=== PATIENT | female | born 1990 | race Caucasian/White ===

== ENCOUNTER 2017-02-27 11:38 | Outpatient (CLI) | payer OTHER ==
[~2017-02-27] VITALS: Ht 165.1 cm; Wt 68.5 kg
[~2017-02-27 11:38] MED LIST: MAXALT MLT10 MG PO; SPRINTEC1 EACH PO
[2017-02-27 11:54] VITALS: BP 130/75
[2017-02-27] MEDS ORDERED: ASPIR 8181 M1 PO (12:10)
[2017-02-27 12:47] LABS: EOSINOPHIL (%) 0.5 % (0-5); EOSINOPHIL COUNT 0.1 K/uL (0-0.3); HEMATOCRIT 31.5 % (36.0-46.0); IMMATURE GRANULOCYTE (%) 0.6 % (0.0-0.7); IMMATURE GRANULOCYTE COUNT 0.1 K/uL; INSTRUMENT ABS NEUTROPHIL CT 8.5 K/uL; LYMPHOCYTE COUNT 1.1 K/uL (1.0-2.8); MCH 32.7 PG (29.0-34.0); MCHC 34.3 G/DL (30.0-36.0); MCV 95.5 FL (83-99); MEAN PLAT.VOLUME 11.4 uM^3 (9.5-12.4); MONOCYTE (%) 7.2 % (3-12); MONOCYTE COUNT 0.8 K/uL (0-0.8); NEUTROPHIL (%) 80.8 % (45-76); NEUTROPHIL COUNT 8.5 K/uL (1.8-6.4); PLATELET COUNT 182 K/uL (156-360); RBC DIS.WIDTH-CV 13.2 % (11.8-14.6); RBC DIS.WIDTH-SD 45.6 % (39-53); WHITE BLOOD COUNT 10.5 K/uL (4.1-10.2)
[2017-02-27 13:25] LABS: ADD MIUA? YES; BILIRUBIN NEGATIVE; BLOOD NEGATIVE; COLOR YELLOW ((YELLOW)); GLUCOSE (STRIP) NEGATIVE; KETONES 5; LEUKOCYTES TRACE; NITRITE NEGATIVE; PROTEIN (STRIP) NEGATIVE; SPECIFIC GRAVITY 1.008 (1.000-1.030); UROBILINOGEN 0.2 MG/DL (0.2-1.0)
[2017-02-27 13:39] LABS: BACTERIA 3+ /HPF; EPITHELIAL CELLS RARE /HPF; MUCUS NONE SEEN /LPF; RED BLOOD CELLS 0-5 /HPF (0-5); UCUL ADDED? YES; WHITE BLOOD CELLS 0-5 /HPF (0-5)
[2017-02-27 15:47] VITALS: BP 115/61
[2017-02-27 18:05] VITALS: BP 115/64
[2017-02-27 18:43] LABS: CANDIDA DNA PROBE NEGATIVE; GARDNERELLA DNA PROBE NEGATIVE; INTERNAL CONTROL VALID? YES
== END 2017-02-27 19:45 | disposition home or self-care (01) ==
LOC: LDRP-OP 11:38 → 2WEST 11:41 → LDRP-OP 07-21 13:57
PROVIDERS: Obstetrics & Gynecology
DX: O47.03 False labor before 37 completed weeks of gestation, third trimester (principal); D72.829 Elevated white blood cell count, unspecified; O30.003 Twin pregnancy, unspecified number of placenta and unspecified number of amniotic sacs, third trimester; Z3A.28 28 weeks gestation of pregnancy
CPT/HCPCS: 59025; 76818; 81003; 82731; 85025; 87081; 87086; 87480; 87510; 87660; G0378; J7120

== ENCOUNTER 2017-03-26 08:09 | Outpatient (CLI) | payer OTHER ==
[~2017-03-26] VITALS: Ht 165.1 cm; Wt 71.8 kg
[~2017-03-26 08:09] MED LIST changes: +ASPIR 8181 M1 PO
[2017-03-26 08:34] VITALS: BP 124/72
[2017-03-26 17:14] LABS: CANDIDA DNA PROBE NEGATIVE; GARDNERELLA DNA PROBE POSITIVE; TRICHOMONAS DNA PROBE NEGATIVE
== END 2017-03-26 13:20 | disposition home or self-care (01) ==
LOC: LDRP-OP 08:09 → 2WEST 08:10 → LDRP-OP 06-21 20:39
PROVIDERS: Obstetrics & Gynecology Gynecology
DX: O47.03 False labor before 37 completed weeks of gestation, third trimester (principal); O98.813 Other maternal infectious and parasitic diseases complicating pregnancy, third trimester; O30.003 Twin pregnancy, unspecified number of placenta and unspecified number of amniotic sacs, third trimester; Z3A.32 32 weeks gestation of pregnancy
CPT/HCPCS: 59025; 76818; 82731; 87480; 87510; 87660; G0378

== ENCOUNTER 2017-03-31 08:20 | Outpatient (CLI) | payer OTHER ==
[~2017-03-31] VITALS: Ht 165.1 cm; Wt 79.5 kg
[2017-03-31] VITALS (21 sets, daily range): BP systolic 113–161; BP diastolic 69–93
[2017-03-31] MEDS ORDERED: FLAGYL500 MG PO (08:46)
[2017-03-31] MEDS ORDERED: MEBOLIC TABLET1 EACH PO (08:47)
[2017-03-31 09:47] LABS: BASOPHIL (%) 0.2 % (0-1); EOSINOPHIL (%) 0.1 % (0-5); HEMATOCRIT 29.4 % (36.0-46.0); HEMOGLOBIN 9.8 G/DL (11.9-15.5); IMMATURE GRANULOCYTE (%) 2.7 % (0.0-0.7); LYMPHOCYTE (%) 6.3 % (15-42); LYMPHOCYTE COUNT 0.9 K/uL (1.0-2.8); MCH 31.1 PG (29.0-34.0); MCHC 33.3 G/DL (30.0-36.0); MCV 93.3 FL (83-99); MONOCYTE (%) 9.4 % (3-12); MONOCYTE COUNT 1.3 K/uL (0-0.8); NEUTROPHIL (%) 81.3 % (45-76); NEUTROPHIL COUNT 11.3 K/uL (1.8-6.4); NRBC (%) 0.9 /100 WBC (0-0); PLATELET COUNT 181 K/uL (156-360); RBC DIS.WIDTH-CV 12.4 % (11.8-14.6); RBC DIS.WIDTH-SD 42.4 % (39-53); RED BLOOD COUNT 3.15 M/uL (3.80-5.20); WHITE BLOOD COUNT 13.9 K/uL (4.1-10.2)
[2017-03-31 09:56] LABS: ALBUMIN 2.9 g/dL (3.2-4.8)
[2017-03-31 09:57] LABS: CHLORIDE 113 mEq/L (99-109); POTASSIUM 3.8 mEq/L (3.7-5.4); SODIUM 141 mEq/L (136-147)
[2017-03-31 09:59] LABS: GLUCOSE 89 mg/dL (70-99); TOTAL PROTEIN 5.1 g/dL (6.4-8.3)
[2017-03-31 10:01] LABS: TOTAL BILIRUBIN 0.2 mg/dL (0.0-1.0)
[2017-03-31 10:02] LABS: ALKALINE PHOSPHATASE 163 IU/L (3-129)
[2017-03-31 10:03] LABS: CREATININE 0.8 mg/dL (0.6-1.3); GFR ESTIMATE (CALCULATED) > 59 mL/min/
[2017-03-31 10:04] LABS: AST (GOT) 39 IU/L (2-34); UREA NITROGEN (BUN) 18 mg/dL (9-23)
[2017-03-31 10:05] LABS: ALT (GPT) 26 IU/L (3-49)
[2017-03-31 10:50] LABS: UR CREATININE CONCENTRATION 85.1 MG/DL
[2017-04-01 04:04] VITALS: BP 149/87
[2017-04-01 05:37] VITALS: BP 145/92
[2017-04-01 06:52] LABS: BASOPHIL (%) 0.5 % (0-1); BASOPHIL COUNT 0.1 K/uL (0-0.1); EOSINOPHIL COUNT 0.1 K/uL (0-0.3); HEMATOCRIT 30.1 % (36.0-46.0); HEMOGLOBIN 9.9 G/DL (11.9-15.5); IMMATURE GRANULOCYTE (%) 4.4 % (0.0-0.7); LYMPHOCYTE (%) 9.9 % (15-42); MCH 31.2 PG (29.0-34.0); MCHC 32.9 G/DL (30.0-36.0); MONOCYTE (%) 8.9 % (3-12); MONOCYTE COUNT 0.9 K/uL (0-0.8); NEUTROPHIL (%) 75.3 % (45-76); NEUTROPHIL COUNT 7.4 K/uL (1.8-6.4); NRBC (%) 1.1 /100 WBC (0-0); PLATELET COUNT 173 K/uL (156-360); RBC DIS.WIDTH-CV 12.4 % (11.8-14.6); RBC DIS.WIDTH-SD 42.9 % (39-53); RED BLOOD COUNT 3.17 M/uL (3.80-5.20); WHITE BLOOD COUNT 9.9 K/uL (4.1-10.2)
[2017-04-01 07:17] LABS: ALBUMIN 2.7 G/DL (3.2-4.8); ALKALINE PHOSPHATASE 144 IU/L (3-129); ALT (GPT) 26 IU/L (3-49); AST (GOT) 36 IU/L (2-34); CHLORIDE 106 MEQ/L (99-109); CREATININE 0.7 MG/DL (0.6-1.3); GFR ESTIMATE (CALCULATED) > 59 mL/min/; GLUCOSE 75 mg/dL (70-99); POTASSIUM 4.4 MEQ/L (3.7-5.4); SODIUM 138 MEQ/L (136-147); TOTAL BILIRUBIN 0.3 MG/DL (0.0-1.0); UREA NITROGEN (BUN) 14 mg/dL (9-23)
[2017-04-01 07:44] VITALS: BP 141/90
== END 2017-04-01 09:32 | disposition home or self-care (01) ==
LOC: LDRP-OP 08:20 → 2WEST 08:21 → LDRP-OP 06-21 13:27
PROVIDERS: Advanced Practice Midwife; Obstetrics & Gynecology
DX: O14.93 Unspecified pre-eclampsia, third trimester (principal); O30.033 Twin pregnancy, monochorionic/diamniotic, third trimester; Z3A.32 32 weeks gestation of pregnancy
CPT/HCPCS: 59025; 80053; 82570; 84156; 85025; 87081; G0378

== ENCOUNTER 2017-04-10 18:23 | Outpatient (CLI) | payer OTHER ==
[2017-04-10] VITALS (7 sets, daily range): BP systolic 112–126; BP diastolic 67–75
[~2017-04-10 18:23] MED LIST changes: +FLAGYL500 MG PO; +MEBOLIC TABLET1 EACH PO
[2017-04-10 19:25] LABS: APPEARANCE SL.HAZY ((CLEAR)); BILIRUBIN NEGATIVE; BLOOD NEGATIVE; COLOR YELLOW ((YELLOW)); GLUCOSE (STRIP) NEGATIVE; KETONES NEGATIVE; LEUKOCYTES NEGATIVE; NITRITE NEGATIVE; PROTEIN (STRIP) 100; SPECIFIC GRAVITY 1.016 (1.000-1.030); UROBILINOGEN 0.2 MG/DL (0.2-1.0)
[2017-04-10 19:31] LABS: BACTERIA 2+ /HPF; EPITHELIAL CELLS RARE /HPF; MUCUS TRACE /LPF; RED BLOOD CELLS 0-5 /HPF (0-5); UCUL ADDED? YES; WHITE BLOOD CELLS 0-5 /HPF (0-5)
[2017-04-10 19:36] LABS: BASOPHIL (%) 0.2 % (0-1); EOSINOPHIL (%) 1.1 % (0-5); EOSINOPHIL COUNT 0.1 K/uL (0-0.3); HEMATOCRIT 32.6 % (36.0-46.0); HEMOGLOBIN 10.8 G/DL (11.9-15.5); IMMATURE GRANULOCYTE (%) 0.6 % (0.0-0.7); LYMPHOCYTE (%) 13.3 % (15-42); LYMPHOCYTE COUNT 1.1 K/uL (1.0-2.8); MCH 30.3 PG (29.0-34.0); MCHC 33.1 G/DL (30.0-36.0); MCV 91.6 FL (83-99); MONOCYTE (%) 8.8 % (3-12); MONOCYTE COUNT 0.7 K/uL (0-0.8); NEUTROPHIL COUNT 6.3 K/uL (1.8-6.4); PLATELET COUNT 180 K/uL (156-360); RBC DIS.WIDTH-CV 12.6 % (11.8-14.6); RBC DIS.WIDTH-SD 41.9 % (39-53); RED BLOOD COUNT 3.56 M/uL (3.80-5.20); WHITE BLOOD COUNT 8.3 K/uL (4.1-10.2)
[2017-04-10 19:48] LABS: ALBUMIN 2.7 G/DL (3.2-4.8); CHLORIDE 105 MEQ/L (99-109); POTASSIUM 4.1 MEQ/L (3.7-5.4); SODIUM 135 MEQ/L (136-147); TOTAL BILIRUBIN 0.2 MG/DL (0.0-1.0)
[2017-04-10 19:54] LABS: ALKALINE PHOSPHATASE 161 IU/L (3-129); ALT (GPT) 20 IU/L (3-49); AST (GOT) 20 IU/L (2-34); CREATININE 0.6 MG/DL (0.6-1.3); GFR ESTIMATE (CALCULATED) > 59 mL/min/; GLUCOSE 86 mg/dL (70-99); TOTAL PROTEIN 5.4 G/DL (6.4-8.3); UREA NITROGEN (BUN) 12 mg/dL (9-23); URIC ACID 6.4 mg/dL (3.1-9.2)
== END 2017-04-10 20:20 | disposition home or self-care (01) ==
LOC: LDRP-OP 18:23 → 2WEST 18:24 → LDRP-OP 06-21 09:38
PROVIDERS: Advanced Practice Midwife
DX: O14.93 Unspecified pre-eclampsia, third trimester (principal); Z3A.34 34 weeks gestation of pregnancy; O30.033 Twin pregnancy, monochorionic/diamniotic, third trimester
CPT/HCPCS: 59025; 80053; 81003; 84550; 85025; 87086; G0378

== ENCOUNTER 2017-04-15 16:21 | Outpatient (CLI) | payer OTHER ==
[2017-04-15] VITALS (11 sets, daily range): BP systolic 109–153; BP diastolic 68–94
[2017-04-15 17:23] LABS: BASOPHIL (%) 0.3 % (0-1); EOSINOPHIL (%) 0.7 % (0-5); EOSINOPHIL COUNT 0.1 K/uL (0-0.3); HEMATOCRIT 31.6 % (36.0-46.0); HEMOGLOBIN 10.5 G/DL (11.9-15.5); IMMATURE GRANULOCYTE (%) 0.4 % (0.0-0.7); LYMPHOCYTE (%) 15.4 % (15-42); LYMPHOCYTE COUNT 1.1 K/uL (1.0-2.8); MCH 30.6 PG (29.0-34.0); MCHC 33.2 G/DL (30.0-36.0); MCV 92.1 FL (83-99); MONOCYTE COUNT 0.5 K/uL (0-0.8); NEUTROPHIL (%) 76.2 % (45-76); NEUTROPHIL COUNT 5.6 K/uL (1.8-6.4); PLATELET COUNT 184 K/uL (156-360); RBC DIS.WIDTH-CV 12.7 % (11.8-14.6); RBC DIS.WIDTH-SD 41.6 % (39-53); RED BLOOD COUNT 3.43 M/uL (3.80-5.20); WHITE BLOOD COUNT 7.3 K/uL (4.1-10.2)
[2017-04-15 17:33] LABS: UR CREATININE CONCENTRATION 23.3 MG/DL
[2017-04-15 17:39] LABS: ALBUMIN 2.7 G/DL (3.2-4.8); ALKALINE PHOSPHATASE 177 IU/L (3-129); ALT (GPT) 11 IU/L (3-49); AST (GOT) 15 IU/L (2-34); CHLORIDE 110 MEQ/L (99-109); CREATININE 0.8 MG/DL (0.6-1.3); GFR ESTIMATE (CALCULATED) > 59 mL/min/; GLUCOSE 85 mg/dL (70-99); POTASSIUM 4.1 MEQ/L (3.7-5.4); SODIUM 137 MEQ/L (136-147); TOTAL PROTEIN 5.3 G/DL (6.4-8.3); UREA NITROGEN (BUN) 12 mg/dL (9-23)
[2017-04-15 17:40] LABS: TOTAL BILIRUBIN 0.3 MG/DL (0.0-1.0)
[2017-04-16 00:04] VITALS: BP 118/60
[2017-04-16 05:23] VITALS: BP 120/76
[2017-04-16 06:39] LABS: BASOPHIL (%) 0.7 % (0-1); EOSINOPHIL (%) 1.6 % (0-5); EOSINOPHIL COUNT 0.1 K/uL (0-0.3); HEMATOCRIT 30.8 % (36.0-46.0); HEMOGLOBIN 9.9 G/DL (11.9-15.5); IMMATURE GRANULOCYTE (%) 0.9 % (0.0-0.7); LYMPHOCYTE (%) 20.6 % (15-42); LYMPHOCYTE COUNT 1.2 K/uL (1.0-2.8); MCH 30.7 PG (29.0-34.0); MCHC 32.1 G/DL (30.0-36.0); MCV 95.7 FL (83-99); MONOCYTE (%) 7.6 % (3-12); MONOCYTE COUNT 0.4 K/uL (0-0.8); NEUTROPHIL (%) 68.6 % (45-76); PLATELET COUNT 156 K/uL (156-360); RBC DIS.WIDTH-SD 44.4 % (39-53); RED BLOOD COUNT 3.22 M/uL (3.80-5.20); WHITE BLOOD COUNT 5.8 K/uL (4.1-10.2)
[2017-04-16 06:58] VITALS: BP 135/87
[2017-04-16 07:13] LABS: ALBUMIN 2.4 G/DL (3.2-4.8); ALKALINE PHOSPHATASE 170 IU/L (3-129); ALT (GPT) 11 IU/L (3-49); AST (GOT) 15 IU/L (2-34); CHLORIDE 111 MEQ/L (99-109); CREATININE 0.7 MG/DL (0.6-1.3); GFR ESTIMATE (CALCULATED) > 59 mL/min/; GLUCOSE 68 mg/dL (70-99); POTASSIUM 4.2 MEQ/L (3.7-5.4); SODIUM 140 MEQ/L (136-147); TOTAL BILIRUBIN 0.3 MG/DL (0.0-1.0); TOTAL PROTEIN 4.6 G/DL (6.4-8.3); UREA NITROGEN (BUN) 11 mg/dL (9-23)
[2017-04-16 08:13] VITALS: BP 129/86
[2017-04-16 12:16] VITALS: BP 129/85
[2017-04-16 12:36] VITALS: BP 134/81
== END 2017-04-16 13:17 | disposition home or self-care (01) ==
LOC: LDRP-OP 16:21 → 2WEST 16:22 → LDRP-OP 06-21 21:36
PROVIDERS: Nurse Practitioner; Obstetrics & Gynecology
DX: O14.93 Unspecified pre-eclampsia, third trimester (principal); O30.033 Twin pregnancy, monochorionic/diamniotic, third trimester; Z3A.35 35 weeks gestation of pregnancy
CPT/HCPCS: 59025; 80053; 82570; 84156; 85025; G0378

== ENCOUNTER 2017-04-20 14:37 | Inpatient (IN) | payer OTHER ==
[~2017-04-20] VITALS: Ht 165.1 cm; Wt 56.8 kg
[2017-04-20] VITALS (14 sets, daily range): BP systolic 131–140; BP diastolic 83–93
[2017-04-20 15:33] LABS: BASOPHIL (%) 0.4 % (0-1); EOSINOPHIL (%) 1.2 % (0-5); EOSINOPHIL COUNT 0.1 K/uL (0-0.3); HEMATOCRIT 31.8 % (36.0-46.0); HEMOGLOBIN 10.6 G/DL (11.9-15.5); IMMATURE GRANULOCYTE (%) 0.5 % (0.0-0.7); MCH 30.1 PG (29.0-34.0); MCHC 33.3 G/DL (30.0-36.0); MONOCYTE (%) 7.4 % (3-12); MONOCYTE COUNT 0.5 K/uL (0-0.8); NEUTROPHIL (%) 76.5 % (45-76); NEUTROPHIL COUNT 5.6 K/uL (1.8-6.4); PLATELET COUNT 151 K/uL (156-360); RBC DIS.WIDTH-CV 13.3 % (11.8-14.6); RBC DIS.WIDTH-SD 41.8 % (39-53); RED BLOOD COUNT 3.52 M/uL (3.80-5.20); WHITE BLOOD COUNT 7.3 K/uL (4.1-10.2)
[2017-04-20 15:35] LABS: MCV 90.3 FL (83-99)
[2017-04-20 16:08] LABS: UR CREATININE CONCENTRATION 210.6 MG/DL
[2017-04-20 16:09] LABS: ALBUMIN 2.6 G/DL (3.2-4.8); ALKALINE PHOSPHATASE 203 IU/L (3-129); ALT (GPT) 9 IU/L (3-49); AST (GOT) 18 IU/L (2-34); CHLORIDE 107 MEQ/L (99-109); CREATININE 0.8 MG/DL (0.6-1.3); GFR ESTIMATE (CALCULATED) > 59 mL/min/; GLUCOSE 97 mg/dL (70-99); POTASSIUM 3.9 MEQ/L (3.7-5.4); SODIUM 135 MEQ/L (136-147); UREA NITROGEN (BUN) 16 mg/dL (9-23); URIC ACID 7.3 mg/dL (3.1-9.2)
[2017-04-20 16:24] LABS: TOTAL BILIRUBIN 0.2 MG/DL (0.0-1.0)
[2017-04-21] VITALS (22 sets, daily range): BP systolic 113–139; BP diastolic 66–90
[2017-04-21 06:15] LABS: BASOPHIL (%) 0 % (0-1); EOSINOPHIL (%) 0 % (0-5); HEMATOCRIT 30.3 % (36.0-46.0); HEMOGLOBIN 10.3 G/DL (11.9-15.5); IMMATURE GRANULOCYTE (%) 0.7 % (0.0-0.7); LYMPHOCYTE (%) 12.1 % (15-42); LYMPHOCYTE COUNT 0.7 K/uL (1.0-2.8); MCH 30.8 PG (29.0-34.0); MCV 90.7 FL (83-99); MONOCYTE (%) 1.6 % (3-12); MONOCYTE COUNT 0.1 K/uL (0-0.8); NEUTROPHIL (%) 85.6 % (45-76); NEUTROPHIL COUNT 4.9 K/uL (1.8-6.4); PLATELET COUNT 133 K/uL (156-360); RBC DIS.WIDTH-CV 13.2 % (11.8-14.6); RBC DIS.WIDTH-SD 42.7 % (39-53); RED BLOOD COUNT 3.34 M/uL (3.80-5.20); WHITE BLOOD COUNT 5.8 K/uL (4.1-10.2)
[2017-04-21 06:58] LABS: ALBUMIN 2.4 G/DL (3.2-4.8); ALKALINE PHOSPHATASE 175 IU/L (3-129); ALT (GPT) 9 IU/L (3-49); AST (GOT) 18 IU/L (2-34); CHLORIDE 106 MEQ/L (99-109); CREATININE 0.8 MG/DL (0.6-1.3); GFR ESTIMATE (CALCULATED) > 59 mL/min/; GLUCOSE 105 mg/dL (70-99); POTASSIUM 4.4 MEQ/L (3.7-5.4); SODIUM 135 MEQ/L (136-147); TOTAL PROTEIN 4.6 G/DL (6.4-8.3); UREA NITROGEN (BUN) 17 mg/dL (9-23)
[2017-04-21 06:59] LABS: TOTAL BILIRUBIN 0.3 MG/DL (0.0-1.0)
[2017-04-21 11:01] LABS: UR CREATININE CONCENTRATION 45.6 MG/DL
[2017-04-22] VITALS (31 sets, daily range): BP systolic 118–161; BP diastolic 62–95
[2017-04-22 08:09] LABS: HEMATOCRIT 32.1 % (36.0-46.0); HEMOGLOBIN 10.8 G/DL (11.9-15.5); MCH 31.3 PG (29.0-34.0); MCHC 33.6 G/DL (30.0-36.0); PLATELET COUNT 157 K/uL (156-360); RBC DIS.WIDTH-CV 13.6 % (11.8-14.6); RBC DIS.WIDTH-SD 44.8 % (39-53); RED BLOOD COUNT 3.45 M/uL (3.80-5.20); WHITE BLOOD COUNT 8.3 K/uL (4.1-10.2)
[2017-04-22 08:33] LABS: ALBUMIN 2.5 G/DL (3.2-4.8); ALKALINE PHOSPHATASE 184 IU/L (3-129); ALT (GPT) 11 IU/L (3-49); AST (GOT) 19 IU/L (2-34); CHLORIDE 107 MEQ/L (99-109); CREATININE 0.8 MG/DL (0.6-1.3); GFR ESTIMATE (CALCULATED) > 59 mL/min/; POTASSIUM 4.4 MEQ/L (3.7-5.4); SODIUM 137 MEQ/L (136-147); TOTAL BILIRUBIN 0.3 MG/DL (0.0-1.0); TOTAL PROTEIN 4.8 G/DL (6.4-8.3); UREA NITROGEN (BUN) 16 mg/dL (9-23)
[2017-04-22 08:38] LABS: GLUCOSE 71 mg/dL (70-99)
[2017-04-23] VITALS (32 sets, daily range): BP systolic 122–173; BP diastolic 73–109
[2017-04-23] MEDS ORDERED: IBUPROFEN800 MG PO (02:23)
[2017-04-23 06:54] LABS: HEMATOCRIT 28.3 % (36.0-46.0); HEMOGLOBIN 9.4 G/DL (11.9-15.5); MCH 30.7 PG (29.0-34.0); MCHC 33.2 G/DL (30.0-36.0); MCV 92.5 FL (83-99); NRBC (%) 0.3 /100 WBC (0-0); PLATELET COUNT 116 K/uL (156-360); RBC DIS.WIDTH-CV 13.6 % (11.8-14.6); RBC DIS.WIDTH-SD 45.2 % (39-53); RED BLOOD COUNT 3.06 M/uL (3.80-5.20); WHITE BLOOD COUNT 9.8 K/uL (4.1-10.2)
[2017-04-23 07:38] LABS: ALBUMIN 1.8 G/DL (3.2-4.8); ALKALINE PHOSPHATASE 138 IU/L (3-129); ALT (GPT) 12 IU/L (3-49); CHLORIDE 111 MEQ/L (99-109); CREATININE 0.8 MG/DL (0.6-1.3); GFR ESTIMATE (CALCULATED) > 59 mL/min/; GLUCOSE 75 mg/dL (70-99); POTASSIUM 3.7 MEQ/L (3.7-5.4); SODIUM 138 MEQ/L (136-147); UREA NITROGEN (BUN) 14 mg/dL (9-23)
[2017-04-23 07:39] LABS: AST (GOT) 37 IU/L (2-34); TOTAL BILIRUBIN 0.5 MG/DL (0.0-1.0); TOTAL PROTEIN 3.7 G/DL (6.4-8.3)
[2017-04-23 13:18] LABS: BASOPHIL (%) 0.2 % (0-1); EOSINOPHIL (%) 0.1 % (0-5); HEMATOCRIT 23.8 % (36.0-46.0); LYMPHOCYTE (%) 5.7 % (15-42); MCH 31.3 PG (29.0-34.0); MCHC 33.6 G/DL (30.0-36.0); MONOCYTE (%) 8.2 % (3-12); MONOCYTE COUNT 1.4 K/uL (0-0.8); NEUTROPHIL (%) 84.8 % (45-76); NEUTROPHIL COUNT 14.5 K/uL (1.8-6.4); NRBC (%) 0.5 /100 WBC (0-0); RBC DIS.WIDTH-CV 13.7 % (11.8-14.6); RBC DIS.WIDTH-SD 45.1 % (39-53); RED BLOOD COUNT 2.56 M/uL (3.80-5.20); WHITE BLOOD COUNT 17.2 K/uL (4.1-10.2)
[2017-04-23 13:35] LABS: PLAT.SUFFICIENCY DECREASED
[2017-04-23 13:47] LABS: PLATELET COUNT 74 K/uL (156-360)
[2017-04-23 21:33] LABS: ALBUMIN 2.1 G/DL (3.2-4.8); ALKALINE PHOSPHATASE 153 IU/L (3-129); CHLORIDE 105 MEQ/L (99-109); GFR ESTIMATE (CALCULATED) 36 mL/min/; MAGNESIUM 9.1 mg/dl (1.3-2.7); POTASSIUM 4.4 MEQ/L (3.7-5.4)
[2017-04-23 21:44] LABS: BASOPHIL (%) 0.1 % (0-1); EOSINOPHIL (%) 0 % (0-5); HEMATOCRIT 25.5 % (36.0-46.0); HEMOGLOBIN 8.5 G/DL (11.9-15.5); IMM.PLATELET FRACTION 20.5 (1-7); IMMATURE GRANULOCYTE (%) 1.3 % (0.0-0.7); LYMPHOCYTE (%) 5.9 % (15-42); LYMPHOCYTE COUNT 1.1 K/uL (1.0-2.8); MCH 29.9 PG (29.0-34.0); MCHC 33.3 G/DL (30.0-36.0); MCV 89.8 FL (83-99); MONOCYTE (%) 7.3 % (3-12); MONOCYTE COUNT 1.3 K/uL (0-0.8); NEUTROPHIL (%) 85.4 % (45-76); NEUTROPHIL COUNT 15.2 K/uL (1.8-6.4); NRBC (%) 0.6 /100 WBC (0-0); PLATELET COUNT 40 K/uL (156-360); RBC DIS.WIDTH-CV 14.1 % (11.8-14.6); RBC DIS.WIDTH-SD 45.6 % (39-53); RED BLOOD COUNT 2.84 M/uL (3.80-5.20); WHITE BLOOD COUNT 17.8 K/uL (4.1-10.2)
[2017-04-23 22:05] LABS: CREATININE 1.8 MG/DL (0.6-1.3); GLUCOSE 104 mg/dL (70-99); UREA NITROGEN (BUN) 24 mg/dL (9-23)
[2017-04-23 22:06] LABS: SODIUM 129 MEQ/L (136-147)
[2017-04-23 22:07] LABS: ALT (GPT) 27 IU/L (3-49); AST (GOT) 159 IU/L (2-34); TOTAL PROTEIN 4.4 G/DL (6.4-8.3)
[2017-04-24] VITALS (30 sets, daily range): BP systolic 110–156; BP diastolic 72–107
[2017-04-24 03:42] LABS: BASOPHIL (%) 0.1 % (0-1); EOSINOPHIL (%) 0 % (0-5); HEMATOCRIT 21.4 % (36.0-46.0); HEMOGLOBIN 7.3 G/DL (11.9-15.5); IMMATURE GRANULOCYTE (%) 1.4 % (0.0-0.7); LYMPHOCYTE (%) 9.6 % (15-42); LYMPHOCYTE COUNT 1.3 K/uL (1.0-2.8); MCH 30.5 PG (29.0-34.0); MCHC 34.1 G/DL (30.0-36.0); MCV 89.5 FL (83-99); MONOCYTE COUNT 1.3 K/uL (0-0.8); NEUTROPHIL (%) 79.9 % (45-76); NEUTROPHIL COUNT 11.2 K/uL (1.8-6.4); NRBC (%) 0.4 /100 WBC (0-0); RBC DIS.WIDTH-CV 14.5 % (11.8-14.6); RBC DIS.WIDTH-SD 46.4 % (39-53); RED BLOOD COUNT 2.39 M/uL (3.80-5.20)
[2017-04-24 03:52] LABS: ALBUMIN 1.9 g/dL (3.2-4.8); CHLORIDE 103 mEq/L (99-109); POTASSIUM 4.6 mEq/L (3.7-5.4)
[2017-04-24 03:53] LABS: SODIUM 126 mEq/L (136-147)
[2017-04-24 03:55] LABS: GLUCOSE 109 mg/dL (70-99); TOTAL PROTEIN 3.5 g/dL (6.4-8.3)
[2017-04-24 03:57] LABS: TOTAL BILIRUBIN 0.7 mg/dL (0.0-1.0)
[2017-04-24 03:58] LABS: ALKALINE PHOSPHATASE 154 IU/L (3-129)
[2017-04-24 03:59] LABS: GFR ESTIMATE (CALCULATED) 32 mL/min/
[2017-04-24 04:00] LABS: AST (GOT) 142 IU/L (2-34); UREA NITROGEN (BUN) 25 mg/dL (9-23)
[2017-04-24 04:02] LABS: ALT (GPT) 30 IU/L (3-49)
[2017-04-24 04:53] LABS: MAGNESIUM 9.8 mg/dl (1.3-2.7)
[2017-04-24 05:05] LABS: IMM.PLATELET FRACTION 25.5 (1-7); PLATELET COUNT 36 K/uL (156-360)
[2017-04-24 07:06] LABS: HEMATOCRIT 20.4 % (36.0-46.0); MCH 30.5 PG (29.0-34.0); MCHC 33.8 G/DL (30.0-36.0); MCV 90.3 FL (83-99); NRBC (%) 0.5 /100 WBC (0-0); RBC DIS.WIDTH-CV 14.6 % (11.8-14.6); RBC DIS.WIDTH-SD 47.5 % (39-53); RED BLOOD COUNT 2.26 M/uL (3.80-5.20); WHITE BLOOD COUNT 13.4 K/uL (4.1-10.2)
[2017-04-24 07:13] LABS: HEMOGLOBIN 6.9 G/DL (11.9-15.5)
[2017-04-24 07:20] LABS: BASOPHIL (%) 0.1 % (0-1); EOSINOPHIL (%) 0 % (0-5); IMMATURE GRANULOCYTE (%) 1.3 % (0.0-0.7); LYMPHOCYTE (%) 10.8 % (15-42); LYMPHOCYTE COUNT 1.4 K/uL (1.0-2.8); MONOCYTE (%) 9.7 % (3-12); MONOCYTE COUNT 1.3 K/uL (0-0.8); NEUTROPHIL (%) 78.1 % (45-76); NEUTROPHIL COUNT 10.4 K/uL (1.8-6.4); PLAT.SUFFICIENCY DECREASED; PLATELET COUNT 40 K/uL (156-360)
[2017-04-24 07:42] LABS: ALBUMIN 1.7 G/DL (3.2-4.8); ALKALINE PHOSPHATASE 128 IU/L (3-129); ALT (GPT) 24 IU/L (3-49); AST (GOT) 102 IU/L (2-34); CHLORIDE 102 MEQ/L (99-109); CREATININE 2.1 MG/DL (0.6-1.3); GFR ESTIMATE (CALCULATED) 30 mL/min/; GLUCOSE 103 mg/dL (70-99); POTASSIUM 4.8 MEQ/L (3.7-5.4); SODIUM 128 MEQ/L (136-147); UREA NITROGEN (BUN) 27 mg/dL (9-23)
[2017-04-24 07:48] LABS: TOTAL BILIRUBIN 0.5 MG/DL (0.0-1.0); TOTAL PROTEIN 3.6 G/DL (6.4-8.3)
[2017-04-24 16:40] LABS: CHLORIDE 102 MEQ/L (99-109); CREATININE 2.3 MG/DL (0.6-1.3); GFR ESTIMATE (CALCULATED) 27 mL/min/; GLUCOSE 117 mg/dL (70-99); POTASSIUM 4.4 MEQ/L (3.7-5.4); SODIUM 128 MEQ/L (136-147); UREA NITROGEN (BUN) 32 mg/dL (9-23)
[2017-04-24 16:41] LABS: MAGNESIUM 6.7 mg/dl (1.3-2.7)
[2017-04-25] VITALS (11 sets, daily range): BP systolic 131–153; BP diastolic 77–96
[2017-04-25 06:19] LABS: BASOPHIL (%) 0.1 % (0-1); EOSINOPHIL (%) 2.6 % (0-5); EOSINOPHIL COUNT 0.3 K/uL (0-0.3); HEMATOCRIT 24.3 % (36.0-46.0); HEMOGLOBIN 8.3 G/DL (11.9-15.5); IMMATURE GRANULOCYTE (%) 1.2 % (0.0-0.7); LYMPHOCYTE (%) 7.5 % (15-42); LYMPHOCYTE COUNT 0.9 K/uL (1.0-2.8); MCH 30.1 PG (29.0-34.0); MCHC 34.2 G/DL (30.0-36.0); MONOCYTE (%) 8.8 % (3-12); NEUTROPHIL (%) 79.8 % (45-76); NEUTROPHIL COUNT 9.4 K/uL (1.8-6.4); NRBC (%) 0.6 /100 WBC (0-0); RBC DIS.WIDTH-CV 14.8 % (11.8-14.6); RBC DIS.WIDTH-SD 46.8 % (39-53); WHITE BLOOD COUNT 11.8 K/uL (4.1-10.2)
[2017-04-25 06:36] LABS: ALT (GPT) 19 IU/L (3-49); CHLORIDE 111 MEQ/L (99-109); CREATININE 2.3 MG/DL (0.6-1.3); GFR ESTIMATE (CALCULATED) 27 mL/min/; GLUCOSE 88 mg/dL (70-99); PHOSPHORUS 4.3 mg/dL (2.5-4.9); POTASSIUM 4.2 MEQ/L (3.7-5.4); TOTAL BILIRUBIN 0.5 MG/DL (0.0-1.0); TOTAL PROTEIN 3.8 G/DL (6.4-8.3); UREA NITROGEN (BUN) 35 mg/dL (9-23); URIC ACID 8.2 mg/dL (3.1-9.2)
[2017-04-25 06:39] LABS: ALKALINE PHOSPHATASE 97 IU/L (3-129); AST (GOT) 41 IU/L (2-34); MAGNESIUM 4.7 mg/dl (1.3-2.7); SODIUM 137 MEQ/L (136-147)
[2017-04-25 06:44] LABS: ALKALINE PHOSPHATASE 97 IU/L (3-129); ALT (GPT) 19 IU/L (3-49); AST (GOT) 41 IU/L (2-34); CHLORIDE 111 MEQ/L (99-109); CREATININE 2.3 MG/DL (0.6-1.3); GFR ESTIMATE (CALCULATED) 27 mL/min/; GLUCOSE 88 mg/dL (70-99); POTASSIUM 4.2 MEQ/L (3.7-5.4); SODIUM 137 MEQ/L (136-147); TOTAL BILIRUBIN 0.5 MG/DL (0.0-1.0); TOTAL PROTEIN 3.8 G/DL (6.4-8.3); UREA NITROGEN (BUN) 35 mg/dL (9-23)
[2017-04-25 06:45] LABS: PLATELET COUNT 63 K/uL (156-360); RED BLOOD COUNT 2.76 M/uL (3.80-5.20)
[2017-04-25 14:09] LABS: CHLORIDE 107 MEQ/L (99-109); CREATININE 2.2 MG/DL (0.6-1.3); GFR ESTIMATE (CALCULATED) 28 mL/min/; POTASSIUM 3.9 MEQ/L (3.7-5.4); SODIUM 138 MEQ/L (136-147); UREA NITROGEN (BUN) 32 mg/dL (9-23)
[2017-04-25 14:11] LABS: GLUCOSE 162 mg/dL (70-99)
[2017-04-25 16:11] LABS: ALBUMIN 2.4 G/DL (3.2-4.8); ALKALINE PHOSPHATASE 86 IU/L (3-129); ALT (GPT) 17 IU/L (3-49); AST (GOT) 33 IU/L (2-34); CHLORIDE 104 MEQ/L (99-109); GFR ESTIMATE (CALCULATED) 32 mL/min/; GLUCOSE 126 mg/dL (70-99); SODIUM 132 MEQ/L (136-147); TOTAL BILIRUBIN 0.5 MG/DL (0.0-1.0); TOTAL PROTEIN 4.1 G/DL (6.4-8.3); UREA NITROGEN (BUN) 29 mg/dL (9-23)
[2017-04-25 19:26] LABS: CHLORIDE 104 MEQ/L (99-109); CREATININE 1.9 MG/DL (0.6-1.3); GFR ESTIMATE (CALCULATED) 33 mL/min/; GLUCOSE 106 mg/dL (70-99); POTASSIUM 4.2 MEQ/L (3.7-5.4); SODIUM 131 MEQ/L (136-147); UREA NITROGEN (BUN) 29 mg/dL (9-23)
[2017-04-26] VITALS (7 sets, daily range): BP systolic 138–168; BP diastolic 87–98
[2017-04-26 01:27] LABS: CHLORIDE 105 mEq/L (99-109); POTASSIUM 4.5 mEq/L (3.7-5.4); SODIUM 132 mEq/L (136-147)
[2017-04-26 01:29] LABS: GLUCOSE 86 mg/dL (70-99)
[2017-04-26 01:33] LABS: CREATININE 1.7 mg/dL (0.6-1.3); GFR ESTIMATE (CALCULATED) 38 mL/min/
[2017-04-26 01:34] LABS: UREA NITROGEN (BUN) 26 mg/dL (9-23)
[2017-04-26 06:48] LABS: HEMATOCRIT 21.9 % (36.0-46.0); HEMOGLOBIN 7.3 G/DL (11.9-15.5); MCH 29.8 PG (29.0-34.0); MCHC 33.3 G/DL (30.0-36.0); MCV 89.4 FL (83-99); NRBC (%) 0.2 /100 WBC (0-0); PLATELET COUNT 67 K/uL (156-360); RBC DIS.WIDTH-CV 14.8 % (11.8-14.6); RBC DIS.WIDTH-SD 47.8 % (39-53); RED BLOOD COUNT 2.45 M/uL (3.80-5.20); WHITE BLOOD COUNT 10.6 K/uL (4.1-10.2)
[2017-04-26 07:09] LABS: ALBUMIN 2.6 G/DL (3.2-4.8); CHLORIDE 103 MEQ/L (99-109); POTASSIUM 4.4 MEQ/L (3.7-5.4); SODIUM 133 MEQ/L (136-147); TOTAL BILIRUBIN 0.5 MG/DL (0.0-1.0)
[2017-04-26 07:47] LABS: ALKALINE PHOSPHATASE 82 IU/L (3-129); ALT (GPT) 18 IU/L (3-49); AST (GOT) 30 IU/L (2-34); CREATININE 1.7 MG/DL (0.6-1.3); GFR ESTIMATE (CALCULATED) 38 mL/min/; GLUCOSE 89 mg/dL (70-99); TOTAL PROTEIN 4.2 G/DL (6.4-8.3); UREA NITROGEN (BUN) 23 mg/dL (9-23)
[2017-04-26 12:36] LABS: APPEARANCE SL.HAZY ((CLEAR)); BILIRUBIN NEGATIVE; BLOOD LARGE; COLOR YELLOW ((YELLOW)); GLUCOSE (STRIP) NEGATIVE; KETONES NEGATIVE; LEUKOCYTES LARGE; NITRITE NEGATIVE; PROTEIN (STRIP) 100; SPECIFIC GRAVITY 1.006 (1.000-1.030); UROBILINOGEN 0.2 MG/DL (0.2-1.0)
[2017-04-26 13:32] LABS: RED BLOOD CELLS TNTC /HPF (0-5); WHITE BLOOD CELLS TNTC /HPF (0-5)
[2017-04-26 13:35] LABS: BACTERIA 2+ /HPF; EPITHELIAL CELLS 1+ /HPF; MUCUS NONE SEEN /LPF
[2017-04-27 02:52] VITALS: BP 144/86
[2017-04-27 07:06] LABS: BASOPHIL (%) 0.3 % (0-1); EOSINOPHIL (%) 2.2 % (0-5); EOSINOPHIL COUNT 0.2 K/uL (0-0.3); HEMATOCRIT 23.7 % (36.0-46.0); HEMOGLOBIN 7.8 G/DL (11.9-15.5); IMMATURE GRANULOCYTE (%) 1.7 % (0.0-0.7); LYMPHOCYTE (%) 12.3 % (15-42); LYMPHOCYTE COUNT 1.3 K/uL (1.0-2.8); MCH 29.8 PG (29.0-34.0); MCHC 32.9 G/DL (30.0-36.0); MCV 90.5 FL (83-99); MONOCYTE (%) 9.3 % (3-12); NEUTROPHIL (%) 74.2 % (45-76); NEUTROPHIL COUNT 7.8 K/uL (1.8-6.4); RBC DIS.WIDTH-CV 14.7 % (11.8-14.6); RBC DIS.WIDTH-SD 46.9 % (39-53); RED BLOOD COUNT 2.62 M/uL (3.80-5.20); WHITE BLOOD COUNT 10.5 K/uL (4.1-10.2)
[2017-04-27 07:17] LABS: PLATELET COUNT 99 K/uL (156-360)
[2017-04-27] MEDS ORDERED: LABETALOL HCL200 MG PO (07:38)
[2017-04-27] MEDS ORDERED: CEPHALEXIN500 MG PO (07:38)
[2017-04-27 07:39] VITALS: BP 158/94
[2017-04-27 07:43] LABS: ALBUMIN 2.7 G/DL (3.2-4.8); ALKALINE PHOSPHATASE 86 IU/L (3-129); CHLORIDE 108 MEQ/L (99-109); CREATININE 1.3 MG/DL (0.6-1.3); GFR ESTIMATE (CALCULATED) 52 mL/min/; GLUCOSE 76 mg/dL (70-99); POTASSIUM 4.8 MEQ/L (3.7-5.4); TOTAL BILIRUBIN 0.4 MG/DL (0.0-1.0); TOTAL PROTEIN 4.5 G/DL (6.4-8.3); UREA NITROGEN (BUN) 18 mg/dL (9-23)
[2017-04-27 08:06] LABS: SODIUM 141 MEQ/L (136-147)
[2017-04-27 08:07] LABS: ALT (GPT) 37 IU/L (3-49); AST (GOT) 54 IU/L (2-34)
[2017-04-27 10:22] VITALS: BP 155/89
[2017-04-27 15:49] VITALS: BP 159/99
[2017-04-27 18:22] VITALS: BP 158/98
[2017-04-27 19:18] VITALS: BP 127/71
[2017-04-28 02:50] VITALS: BP 127/67
[2017-04-28 05:48] LABS: BASOPHIL (%) 0.4 % (0-1); EOSINOPHIL (%) 2.3 % (0-5); EOSINOPHIL COUNT 0.2 K/uL (0-0.3); HEMATOCRIT 25.7 % (36.0-46.0); HEMOGLOBIN 8.4 G/DL (11.9-15.5); LYMPHOCYTE (%) 13.4 % (15-42); LYMPHOCYTE COUNT 1.4 K/uL (1.0-2.8); MCH 29.8 PG (29.0-34.0); MCHC 32.7 G/DL (30.0-36.0); MCV 91.1 FL (83-99); MONOCYTE (%) 7.6 % (3-12); MONOCYTE COUNT 0.8 K/uL (0-0.8); NEUTROPHIL (%) 74.3 % (45-76); NEUTROPHIL COUNT 7.6 K/uL (1.8-6.4); PLATELET COUNT 115 K/uL (156-360); RBC DIS.WIDTH-CV 15.1 % (11.8-14.6); RBC DIS.WIDTH-SD 47.2 % (39-53); RED BLOOD COUNT 2.82 M/uL (3.80-5.20); WHITE BLOOD COUNT 10.3 K/uL (4.1-10.2)
[2017-04-28 06:17] LABS: ALBUMIN 3.1 G/DL (3.2-4.8); ALKALINE PHOSPHATASE 104 IU/L (3-129); ALT (GPT) 66 IU/L (3-49); AST (GOT) 75 IU/L (2-34); CHLORIDE 108 MEQ/L (99-109); CREATININE 1.2 MG/DL (0.6-1.3); GFR ESTIMATE (CALCULATED) 57 mL/min/; GLUCOSE 86 mg/dL (70-99); POTASSIUM 5.1 MEQ/L (3.7-5.4); SODIUM 140 MEQ/L (136-147); UREA NITROGEN (BUN) 15 mg/dL (9-23)
[2017-04-28 06:18] LABS: TOTAL BILIRUBIN 0.5 MG/DL (0.0-1.0); TOTAL PROTEIN 5.3 G/DL (6.4-8.3)
[2017-04-28] MEDS ORDERED: PROCARDIA XL30 MG PO (10:24)
[2017-04-28] MEDS ORDERED: LABETALOL HCL200 MG PO (10:24)
[2017-04-28 13:31] LABS: ALBUMIN 3.3 G/DL (3.2-4.8); ALKALINE PHOSPHATASE 107 IU/L (3-129); ALT (GPT) 72 IU/L (3-49); AST (GOT) 70 IU/L (2-34); CHLORIDE 103 MEQ/L (99-109); CREATININE 1.2 MG/DL (0.6-1.3); GFR ESTIMATE (CALCULATED) 57 mL/min/; GLUCOSE 96 mg/dL (70-99); POTASSIUM 4.3 MEQ/L (3.7-5.4); SODIUM 137 MEQ/L (136-147); TOTAL BILIRUBIN 0.4 MG/DL (0.0-1.0); TOTAL PROTEIN 5.4 G/DL (6.4-8.3); UREA NITROGEN (BUN) 15 mg/dL (9-23)
== END 2017-04-28 15:59 | disposition home or self-care (01) | DRG 774 ==
LOC: LDRP-OP 14:37 → 2WEST 14:38 → LDRP-OP 06-21 13:22
PROVIDERS: Advanced Practice Midwife; Internal Medicine Nephrology; Obstetrics & Gynecology; Obstetrics & Gynecology Gynecology; Obstetrics & Gynecology Obstetrics
DX: O71.4 Obstetric high vaginal laceration alone (principal); N17.0 Acute kidney failure with tubular necrosis; O14.24 HELLP syndrome, complicating childbirth; O30.033 Twin pregnancy, monochorionic/diamniotic, third trimester; O72.1 Other immediate postpartum hemorrhage; Z37.2 Twins, both liveborn; Z3A.36 36 weeks gestation of pregnancy; H33.20 Serous retinal detachment, unspecified eye; N39.0 Urinary tract infection, site not specified; E87.1 Hypo-osmolality and hyponatremia; E83.51 Hypocalcemia; E88.09 Other disorders of plasma-protein metabolism, not elsewhere classified; O99.284 Endocrine, nutritional and metabolic diseases complicating childbirth; O99.02 Anemia complicating childbirth; D64.9 Anemia, unspecified; D69.59 Other secondary thrombocytopenia; O26.833 Pregnancy related renal disease, third trimester
CPT/HCPCS: 76705; 76770; 76805; 76810; 80048; 80048 91; 80053; 81003; 82570; 83735; 83935; 84100; 84156; 84300; 84550; 85025; 85025 91; 85027; 86850; 86900; 86901; 86920; 87077; 87086; 87186; 88307; 89190; C1755; G0378; J0360; J0595; J0610; J0702; J2405; J2597; J3010; J3475; J7030; J7060; J7070; J7120; P9016; P9047